=== PATIENT | male | born 1970 | race Caucasian/White ===

== ENCOUNTER → 2025-01-12 10:08 | Outpatient (REF) | payer BC, SELFPAY | LOC: RAD 10:08 | PROVIDERS: ATTENDING PHYSICIAN Family Medicine | DX: M54.16 Radiculopathy, lumbar region (principal) | CPT/HCPCS: 72110 ==

== ENCOUNTER → 2025-01-20 11:09 | Outpatient (REF) | payer BC, SELFPAY | LOC: PAVMRI 11:09 | PROVIDERS: ATTENDING PHYSICIAN Family Medicine | DX: M54.16 Radiculopathy, lumbar region (principal) | CPT/HCPCS: 72148 ==